=== PATIENT | female | born 1945 | race Caucasian/White ===

== ENCOUNTER 2017-09-19 09:21 | Day surgery (SDC) | payer MEDICARE, MEDICAID ==
[~2017-09-19] VITALS: Ht 165.1 cm; Wt 89.8 kg
[2017-09-19] MEDS ORDERED: CYCLOPENTOLATE HCL 1% OPHTH DROPS 2ML RIGHTEYE ONE (10:25)
[2017-09-19] MEDS ORDERED: LACTATED RINGERS 1,000 ML IV SCH (10:25)
[2017-09-19] MEDS ORDERED: PHENYLEPHRINE HCL 10% OPHTH DROPS 5ML RIGHTEYE ONE (10:25)
[2017-09-19] MEDS ORDERED: TROPICAMIDE 1% OPHTH DROPS 15ML RIGHTEYE ONE (10:25)
[2017-09-19] MEDS ORDERED: ATOR20TA PO (12:26)
[2017-09-19] MEDS ORDERED: ASPI-1159 PO (12:26)
[2017-09-19] MEDS ORDERED: LISI40TA4 PO (12:26)
[2017-09-19] MEDS ORDERED: HYDR25TA PO (12:26)
[2017-09-19] MEDS ORDERED: AMLO10TA80 PO (12:26)
[2017-09-19] MEDS ORDERED: BALANCED SALT IRRIG SOLN COMB1 500ML OP ONE (14:45)
[2017-09-19] MEDS ORDERED: HYALURONATE SODIUM 14 MG/ML 0.85ML SYRINGE IO ONE (14:56)
[2017-09-19] MEDS ORDERED: FENTANYL CITRATE/PF 50MCG/ML 2ML VIAL ONE (15:15)
[2017-09-19] MEDS ORDERED: MIDAZOLAM HCL 2 MG/2 ML VIAL ONE (15:15)
[2017-09-19] MEDS ORDERED: CIPROFLOXACIN 0.3% OPHTH SOLN 2.5ML ONE (15:21)
[2017-09-19] MEDS ORDERED: LIDOCAINE HCL 2%/EPINEPHRINE 1:100,000 20 ML VIAL INFIL ONE ×2 (15:21)
[2017-09-19] MEDS ORDERED: PREDNISOLONE ACETATE 1% OPHTH DROPS 1ML ONE (15:21)
[2017-09-19] MEDS ORDERED: BALANCED SALT IRRIG SOLN 15ML ONE (15:21)
[2017-09-19] MEDS ORDERED: TETRACAINE 0.5% OPHTH DROPS 4ML ONE (15:21)
[2017-09-19] MEDS ORDERED: BUPIVACAINE HCL/PF 0.75% (7.5MG/ML) 10ML ONE (15:21)
[2017-09-19] MEDS ORDERED: NEO/POLYMYX B SULF/DEXAMETH OPHTH OINT 3.5GM ONE (15:21)
[2017-09-19] MEDS ORDERED: ONDANSETRON HCL 4MG/2ML VIAL IV PRN (15:45)
== END 2017-09-19 17:00 | disposition home or self-care (01) ==
LOC: OR 09:21
PROVIDERS: ATTEND Ophthalmology
DX: H25.011 Cortical age-related cataract, right eye (principal); I10 Essential (primary) hypertension; E78.00 Pure hypercholesterolemia, unspecified; M19.90 Unspecified osteoarthritis, unspecified site; E66.01 Morbid (severe) obesity due to excess calories; Z79.82 Long term (current) use of aspirin; Z79.899 Other long term (current) drug therapy; Z90.710 Acquired absence of both cervix and uterus; Z98.890 Other specified postprocedural states
CPT/HCPCS: 66984; J2250; J3010; J3490; J7120; V2632

== ENCOUNTER 2019-04-22 10:16 | Emergency (ER) | payer MEDICARE, MEDICAID ==
[~2019-04-22] VITALS: Ht 162.6 cm; Wt 75.0 kg
[~2019-04-22 10:16] MED LIST: AMLO10TA80 PO; ASPI-1497 PO; ATOR20TA PO; HYDR25TA PO; LISI40TA4 PO
[2019-04-22] MEDS ORDERED: IBUPROFEN 600MG TABLET PO STA (10:51)
[2019-04-22 11:59] VITALS: BP 143/87
== END 2019-04-22 12:10 | disposition home or self-care (01) ==
LOC: ER 10:16
DX: S40.011A Contusion of right shoulder, initial encounter (principal); S20.211A Contusion of right front wall of thorax, initial encounter; I10 Essential (primary) hypertension; I25.10 Atherosclerotic heart disease of native coronary artery without angina pectoris; Z79.82 Long term (current) use of aspirin; W01.0XXA Fall on same level from slipping, tripping and stumbling without subsequent striking against object, initial encounter; Y93.89 Activity, other specified; Y92.480 Sidewalk as the place of occurrence of the external cause
CPT/HCPCS: 71045; 73030; 93005; 99284